=== PATIENT | female | born 1985 | race African-American/Black ===

== ENCOUNTER 2021-02-20 00:12 | Emergency (ER) | payer OTHER ==
[2021-02-20] MEDS ORDERED: DIPHTH,PERTUSS(ACELL),TET 0.5 ML DISP.SYRIN IM ONE (00:14)
[2021-02-20] MEDS ORDERED: SODIUM CHLORIDE 1,000 ML IV STA (00:14)
[2021-02-20 00:19] VITALS: TEMP 97.9; BMI 29.0
[2021-02-20 00:31] LABS: BASO % 0.5 % (0-2.0); EOS % 1.1 % (0-4.5); MCH 27.3 pg (25.7-33.7); MCHC 32.6 g/dl (32.0-36.0); MEAN CELL VOLUME 83.9 fl (80-96); MEAN PLT VOLUME 8.3 fl (7.5-11.1); MONO % 5.9 % (3.8-10.2); NEUT % 38.5 % (42.8-82.8); PLATELET COUNT 255 K/MM3 (134-434); RDW 14.8 % (11.6-15.6); WHITE BLOOD COUNT 9.2 K/mm3 (4.0-10.0)
[2021-02-20 00:41] LABS: INR 0.99 (0.83-1.09); PROTHROMBIN TIME (PATIENT) 12.2 SEC (9.7-13.0)
[2021-02-20 00:43] LABS: ACTIVATED PTT 24.2 SECONDS (25.2-36.5)
[2021-02-20 00:49] LABS: CALCIUM 8.9 mg/dL (8.5-10.1)
[2021-02-20 00:50] LABS: ALBUMIN 3.9 g/dl (3.4-5.0); BLOOD UREA NITROGEN 17.7 mg/dL (7-18)
[2021-02-20 00:54] LABS: BILIRUBIN,TOTAL 0.2 mg/dL (0.2-1); TOT PROT 7.3 g/dl (6.4-8.2)
[2021-02-20] MEDS ORDERED: morphine CARPU-JECT 4 MG/1 ML DISP.SYRIN IVPUSH ONE (01:30)
[2021-02-20] MEDS ORDERED: MORPHINE SULFATE 2 MG/ML VIAL ONE (01:34)
[2021-02-20 01:53] VITALS: BP 120/89; PULSE 78
== END 2021-02-20 01:55 | disposition short-term general hospital (02) ==
LOC: JER 00:12
PROC: 3E0234Z Introduction of Serum, Toxoid and Vaccine into Muscle, Percutaneous Approach (ICD-10-PCS; principal; 2021-02-20)
PROC: 3E033NZ Introduction of Analgesics, Hypnotics, Sedatives into Peripheral Vein, Percutaneous Approach (ICD-10-PCS; 2021-02-20)
PROC: 3E033NZ Introduction of Analgesics, Hypnotics, Sedatives into Peripheral Vein, Percutaneous Approach (ICD-10-PCS; 2021-02-20)
PROC: 3E033NZ Introduction of Analgesics, Hypnotics, Sedatives into Peripheral Vein, Percutaneous Approach (ICD-10-PCS; 2021-02-20)
PROC: 3E0337Z Introduction of Electrolytic and Water Balance Substance into Peripheral Vein, Percutaneous Approach (ICD-10-PCS; 2021-02-20)
DX: S81.832A Puncture wound without foreign body, left lower leg, initial encounter (principal)
CPT/HCPCS: 36415; 73590-TC-LT-FY; 73610-TC-LT-FY; 73630-TC-LT; 80053; 80307; 84703; 85025; 85610; 85730; 86850; 86900; 86901; 90471; 90715; 93005; 93010; 99285-25